=== PATIENT | male | born 1980 | race Caucasian/White ===

== ENCOUNTER 2016-08-10 11:43 | Emergency (ER) | payer MEDICAID ==
[~2016-08-10] VITALS: Ht 160 cm; Wt 76.6 kg
[~2016-08-10 11:43] MED LIST: AUG875 PO; LORA10TA3 PO
[2016-08-10 12:05] VITALS: Ht 160 cm; Wt 76.6 kg
[2016-08-10] MEDS ORDERED: NAPR-688 PO (14:16)
--- NOTE | 2016-08-10 14:27 | ERD ---
ER Documentation Chief Complaint Date/Time DATE: 08/10/16 TIME: 14:24 Chief Complaint RT FOOT PAIN UNKNOWN ORIGIN X6 MONTHS HPI This is a 35-year-old male presenting to the emergency room complaining of right dorsal foot pain for the past 6 months. Patient brings his son for a different complaint and decided to check in for his complaint as well. Patient states that he has pain that comes and goes with certain motions of his foot on the dorsal aspect of his foot and he rates it moderate in severity. Patient states that he is able to ambulate and he has no restricted range of motion. Patient states that about 6 months ago he might of had a previous injury. Patient denies any medical problems or medications. ROS All systems reviewed and are negative except as per history of present illness. Medications Home Meds Active Scripts Naproxen* (Naproxen*) 500 Mg Tablet, 500 MG PO BID Y for PAIN, #30 TAB Prov:VERONICA STRONG PA-C 08/10/16 Loratadine* (Loratadine*) 10 Mg Tablet, 10 MG PO DAILY, #14 TAB Prov:RAD OSORIO PA-C 03/06/15 Amoxicillin-Clavulanate K* (Augmentin*) 875 Mg Tab, 875 MG PO BID for 7 Days, TAB Prov:RAD OSORIO PA-C 03/06/15 PMhx/Soc Medical and Surgical Hx: pt denies Medical Hx, pt denies Surgical Hx Hx Alcohol Use: No Hx Substance Use: No Hx Tobacco Use: No Smoking Status: Never smoker Physical Exam Vitals Vital Signs Date Time Temp Pulse Resp B/P Pulse Ox O2 Delivery O2 Flow Rate FiO2 08/10/16 12:05 98.1 53 16 110/72 99 Physical Exam General: WD/WN, in no apparent distress, non-toxic appearing HENT: NC/AT Eyes: Conjunctiva normal Neck: Supple Pulm: Clear to auscultation, normal labored breathing; no wheezing/rales/ rhonchi heard CV: Good capillary refill GI: Non-distended, no guarding Back: No masses Ext: Right dorsal foot had no swelling, nontender to palpation, patient had some tenderness with certain movements, full range of motion, no nerve deficit Neuro: Moves on all fours Skin: intact Psych: Normal mood Procedures/MDM This is a 35-year-old male presenting to the emergency room for right dorsal foot pain that comes and goes with certain movements for the past 6 months. Patient is able to ambulate, he has no nerve deficits. He has full range of motion. Patient decided to check in since he is bringing his son for a different complaint. At this time I do not believe that patient needs any x- rays since this is a more chronic issue, I doubt acute fracture or dislocation, patient had no neuro deficits and is able to ambulate. Patient is suitable to follow-up with a primary care physician to get with a referral for possible MRI. My differentials include but not limited to extend just her tendinopathy, sprain, and other foot conditions. Patient was given an Abrahan bandage he is neurovascular intact. Prescription of naproxen was provided. Discussed return to the ER for any worsening signs no. Patient understands and agrees with this plan Departure Diagnosis: Primary Impression: Foot pain Condition: Stable Patient Instructions: Treating Tendonitis of the Foot Referrals: [facility] Usted se cedeno hecho un examen mdico de control que le indica que no est en nikia condicin que requiera tratamiento urgente en el Departamento de Emergencia. Un estudio ms profundo y el tratamiento de carnes condicin pueden esperar sin ningn riesgo hasta que usted sea atendida/o en el consultorio de carnes mdico o nikia cl janelle. Es responsabilidad suya arreglar nikia lorenzo para el seguimiento del poonam. MANEJO DE CONDICIONES NO URGENTES EN EL FUTURO 1) Si usted tiene un mdico de atencin primaria: Usted debera llamar a carnes mdico de atencin primaria antes de venir al departamento de emergencia. Despus de las horas de consultorio, carnes doctor o carnes asociado/a est disponible por telfono. El mdico o enfermero de gray en el servicio telefnico puede asesorarle por janice medio para atender el problema, o poonam contrario se puede programar nikia lorenzo. 2) Si usted no tiene un mdico de atencin primaria: Llame al mdico o clnica de referencia que aparece abajo dwayne las horas de consultorio para hacer nikia lorenzo para que le vean. CLINICAS: [facility] [phone] [facility] [phone] [facility] [phone] [place] [phone] [place] [address] [phone] [facility]. [phone] [address] Additional Instructions: Visite a carnes mdico maana para un EXAMEN.Regrese a estas instalaciones si no se mejora susan esperbamos o susan le dijimos. [place] toda la medicina genaro y susan se le indic. Regrese a estas instalaciones si no se mejora susan esperbamos o susan le dijimos. VERONICA STRONG PA-C Aug 10, 2016 14:27
== END 2016-08-10 14:53 | disposition home or self-care (01) ==
LOC: FTE 11:43
DX: M79.671 Pain in right foot (principal)
CPT/HCPCS: 99283

== ENCOUNTER 2016-08-30 18:14 | Emergency (ER) | payer MEDICAID ==
[~2016-08-30] VITALS: Ht 157.5 cm; Wt 78.0 kg
[~2016-08-30 18:14] MED LIST changes: +NAPR-688 PO
[2016-08-30 18:19] VITALS: Ht 157.5 cm; Wt 78.0 kg
[2016-08-30] MEDS ORDERED: HYDR-3011 PO (18:39)
[2016-08-30] MEDS ORDERED: DOXY100T20 PO (18:39)
--- NOTE | 2016-08-30 18:48 | ERD ---
ER Documentation Chief Complaint Date/Time DATE: 08/30/16 TIME: 18:45 Chief Complaint FOREHEAD RASH HPI 35-year-old male presents in emergency department for a rash that broke out in the forehead area started 2 weeks ago, patient noted it to be more and seems to be now has shows. Patient does not have any fever or chills. Patient denies any rash in other parts of the body. Patient is complaining of itching at times. Patient states when he works that he has been sweating a lot lately. Patient did not take any medications of symptoms. ROS All systems reviewed and are negative except as per history of present illness. Medications Home Meds Active Scripts Hydroxyzine Hcl* (Hydroxyzine Hcl*) 25 Mg Tablet, 25 MG PO Q8H Y for ITCHING, # 30 TAB Prov:BRIANNA AMAYA NP 08/30/16 Doxycycline Hyclate* (Doxycycline Hyclate*) 100 Mg Tablet.dr, 100 MG PO BID for 10 Days, TAB Prov:BRIANNA AMAYA NP 08/30/16 Naproxen* (Naproxen*) 500 Mg Tablet, 500 MG PO BID Y for PAIN, #30 TAB Prov:VERONICA STRONG PA-C 08/10/16 Loratadine* (Loratadine*) 10 Mg Tablet, 10 MG PO DAILY, #14 TAB Prov:RAD OSORIO PA-C 03/06/15 Amoxicillin-Clavulanate K* (Augmentin*) 875 Mg Tab, 875 MG PO BID for 7 Days, TAB Prov:RAD OSORIO PA-C 03/06/15 Allergies Allergies: Coded Allergies: No Known Allergy (Unverified , 08/30/16) PMhx/Soc Medical and Surgical Hx: pt denies Surgical Hx Hx Cardiac Disorders: Yes (dyslipidemia) Hx Alcohol Use: No Hx Substance Use: No Hx Tobacco Use: No FmHx Family History: No coronary disease, No diabetes, No other Physical Exam Vitals Vital Signs Date Time Temp Pulse Resp B/P Pulse Ox O2 Delivery O2 Flow Rate FiO2 08/30/16 18:19 98.1 58 20 100/54 99 Physical Exam GENERAL: The patient is well developed and appropriate for usual state of health, in no apparent distress. CHEST: Clear to auscultation bilaterally. There are no rales, wheezes or rhonchi. HEART: Regular rate and rhythm. No murmurs, clicks, rubs or gallops. No S3 or S4. ABDOMEN: Soft, nontender and nondistended. Good bowel sounds. No rebound or guarding. No gross peritonitis. No gross organomegaly or masses. No Parmar sign or McBurney point tenderness. BACK: No midline or flank tenderness. EXTREMITIES: Equal pulses bilaterally. There is no peripheral clubbing, cyanosis or edema. No focal swelling or erythema. Full range of motion. Grossly neurovascularly intact. NEURO: Alert and oriented. Cranial nerves 2-12 intact. Motor strength in all 4 extremities with 5/5 strength. Sensation grossly intact. Normal speech and gait. SKIN: Papules and pustules noted in the forehead area, no fluctuance noted. There is no apparent ecchymosis or petechia. The skin is warm and dry. HEMATOLOGIC AND LYMPHATIC: There is no evidence of excessive bruising or lymphedema. No gross cervical, axillary, or inguinal lymphadenopathy. Procedures/MDM Medical decision making: Patient's rash in the forehead area most likely consistent with acne vulgaris with pustules, no symptoms of abscess at this time. No symptoms of sepsis at this time. Patient was given for doxycycline, hydroxyzine, is advised to keep area dry, avoid touching the rash, follow-up with demo event specialist for further evaluation and symptoms. Patient was advised to return to emergency department for worsening symptoms. Departure Diagnosis: Primary Impression: Acne vulgaris Condition: Stable Patient Instructions: Adult Acne BRIANNA AMAYA NP Aug 30, 2016 18:48
== END 2016-08-30 18:40 | disposition home or self-care (01) ==
LOC: E/R 18:14
DX: L70.0 Acne vulgaris (principal)
CPT/HCPCS: 99284

== ENCOUNTER 2017-06-24 11:39 | Emergency (ER) | END 2017-06-24 12:08 | disposition home or self-care (01) ==

== ENCOUNTER 2017-08-29 10:39 | Emergency (ER) | END 2017-08-29 11:45 | disposition home or self-care (01) ==

== ENCOUNTER 2018-03-06 09:27 | Emergency (ER) | END 2018-03-06 10:50 | disposition home or self-care (01) ==

== ENCOUNTER 2018-08-11 17:41 | Emergency (ER) | payer MEDICAID ==
[~2018-08-11] VITALS: Ht 162.6 cm; Wt 82.0 kg
[~2018-08-11 17:41] MED LIST changes: +CETI10CA PO; +CETI10TA34 PO; +DOXY100T20 PO; +ERYT1OIN6 OP; +HYDR-843 PO; +MINE3.5O31 BOTH EYES; +MUPI22OI2 TOP; +NAPR-985 PO; +POLY10DR19 RIGHT EYE; +PRED20TA PO
[2018-08-11 18:04] VITALS: BP 139/69; PULSE 53; RESP 18; Ht 162.6 cm; Wt 82.0 kg
--- NOTE | 2018-08-11 20:14 | ERD ---
ER Documentation Chief Complaint Chief Complaint bilateral lower eye/upper cheek skin bumps X 2 days, eye "burning" pain HPI 37-year-old male, previously healthy, presents to the emergency department, complaining of bilateral eyelid erythema and focal pruritus, the patient believes that is an allergic reaction caused by a new hair product that he has been using for the last week. He denies lip swelling, no shortness of breath, no difficulty swallowing. ROS All systems reviewed and are negative except as per history of present illness. Medications Home Meds Active Scripts Triamcinolone Acetonide (Triamcinolone Acetonide) 0.5% - 15 Gm Oint..gm., 1 APPLIC TOP BID for 7 Days, #1 TUB Prov:DEEPAK DONALD MD 08/11/18 Cetirizine Hcl* (Zyrtec*) 10 Mg Capsule, 10 MG PO DAILY, #10 TAB.CHEW Prov:TYLER AGUILAR PA-C 03/06/18 Polymyxin B Sulfate-TMP* (Polymyxin B-TMP Eye Drops*) 10 Ml Drops, 1 DROP RIGHT EYE QID for 7 Days, EA Prov:TYLER AGUILAR PA-C 03/06/18 Naproxen* (Naprosyn*) 500 Mg Tablet, 500 MG PO BID PRN for PAIN AND/OR INFLAMMATION, #30 TAB Prov:CHRISTELLE KILLIAN PA-C 10/24/17 Mupirocin* (Bactroban*) 2% -22 Gram Oint...g., 1 APPLIC TOP BID for 7 Days, EA Prov:TYLER AGUILAR PA-C 10/24/17 Prednisone* (Prednisone*) 20 Mg Tab, 40 MG PO DAILY for 5 Days, TAB Prov:RAD OSORIO PA-C 08/29/17 Cetirizine Hcl* (Zyrtec*) 10 Mg Capsule, 10 MG PO DAILY, #30 TAB.CHEW Prov:RAD OSORIO PA-C 08/29/17 Erythromycin Base (Erythromycin) 1 Gm Oint...g., 1 GM OP Q6 for 7 Days Prov:VERONICA STRONG PA-C 06/24/17 Cetirizine Hcl* (Cetirizine Hcl*) 10 Mg Tab.chew, 10 MG PO DAILY, #30 TAB Prov:VERONICA STRONG PA-C 06/24/17 Artificial Tears* (Akwa Oint*) 3.5 Gm Oint, 1 APPLIC BOTH EYES HS for 7 Days, #1 TUB Prov:VERONICA STRONG PA-C 06/24/17 Hydroxyzine Hcl* (Hydroxyzine Hcl*) 25 Mg Tablet, 25 MG PO Q8H PRN for ITCHING, #30 TAB Prov:BRIANNA AMAYA NP 08/30/16 Doxycycline Hyclate* (Doxycycline Hyclate*) 100 Mg Tablet.dr, 100 MG PO BID for 10 Days, TAB Prov:BRIANNA AMAYA NP 08/30/16 Naproxen* (Naproxen*) 500 Mg Tablet, 500 MG PO BID PRN for PAIN, #30 TAB Prov:VERONICA STRONG PA-C 08/10/16 Loratadine* (Loratadine*) 10 Mg Tablet, 10 MG PO DAILY, #14 TAB Prov:RAD OSORIO PA-C 03/06/15 Amoxicillin-Clavulanate K* (Augmentin*) 875 Mg Tab, 875 MG PO BID for 7 Days, TAB Prov:RAD OSORIO PA-C 03/06/15 Allergies Allergies: Coded Allergies: No Known Allergy (Unverified , 03/06/18) PMhx/Soc Medical and Surgical Hx: pt denies Surgical Hx Hx Cardiac Disorders: No Hx Alcohol Use: No Hx Substance Use: No Hx Tobacco Use: No Smoking Status: Never smoker FmHx Family History: No diabetes, No coronary disease Physical Exam Vitals Vital Signs Date Temp Pulse Resp B/P (MAP) Pulse Ox O2 O2 Flow FiO2 Time Delivery Rate 08/11/18 98.0 53 18 139/69 98 18:04 (92) Physical Exam Const: No acute distress Head: Atraumatic Eyes: Normal Conjunctiva ENT: Normal External Ears, Nose and Mouth. Neck: Full range of motion. No meningismus. Resp: Clear to auscultation bilaterally Cardio: Regular rate and rhythm, no murmurs Abd: Soft, non tender, non distended. Normal bowel sounds Skin: Bilateral eyelid erythema and dryness. Back: No midline or flank tenderness Ext: No cyanosis, or edema Neur: Awake and alert Psych: Normal Mood and Affect Procedures/MDM Differential diagnosis include but not limited to: Acute allergic reaction, shingles, scabies, autoimmune dermatitis, medication side effect, low suspicion for angioedema, anaphylactic shock, Linares-Virgilio syndrome. Physical examination and clinical presentation consistent most likely with acute allergic dermatitis Results and clinical impression discussed with patient whom agrees with management. The patient is stable to be treated outpatient and will be discharged home with a Rx for triamcinolone. The patient was instructed to follow up with the primary care provider in the next 48h. If symptoms persist, worsen or new symptoms develop, then patient should return to the ED immediately. Instructions explained and given directly by me with acknowledgment and demonstrated understanding. Disclaimer: Inadvertent spelling and grammatical errors are likely due to EHR/dictation software use and do not reflect on the overall quality of patient care. Also, please note that the electronic time recorded on this note does not necessarily reflect the actual time of the patient encounter. Departure Diagnosis: Primary Impression: Allergic dermatitis Condition: Stable Additional Instructions: Muchas ashley por [facility] para carnes servicio. Esperamos que en carnes visita a la callum de emergencia carnes problema medico haya sido solucionado y que se sienta mucho mejor. Para estar seguros que carnes mejoria sigue en proceso, le pedimos el favor de hacer nikia lorenzo de seguimiento medico con carnes doctor primario en los proximos 2-4 morrison. Lleve con usted estos documentos y las medicinas recetadas. Si peyman sintomas empeoran, NO SE ESPERE, por favor regrese a callum de emergencia INMEDIATAMENTE. En poonam que usted no tenga un mdico de atencin primaria: Llame al mdico o clnica comunitaria de referencia que aparece abajo dwayne las horas de consultorio para hacer nikia lorenzo para que le vean. CLINICAS: [facility] [phone] [facility] [phone] [facility] [phone] [facility] [phone] [facility] [phone] [facility]. [phone] DEEPAK HAND MD Aug 11, 2018 20:14
[2018-08-11] MEDS ORDERED: TRIA15OI9 TOP (20:15)
== END 2018-08-11 20:28 | disposition home or self-care (01) ==
LOC: FTE 17:41
DX: H01.112 Allergic dermatitis of right lower eyelid (principal); H01.115 Allergic dermatitis of left lower eyelid
CPT/HCPCS: 99283

== ENCOUNTER 2018-10-17 11:41 | Emergency (ER) | payer MEDICAID ==
[~2018-10-17] VITALS: Ht 160 cm; Wt 82.1 kg
[~2018-10-17 11:41] MED LIST changes: +TRIA15OI9 TOP
[2018-10-17 12:05] VITALS: Ht 160 cm; Wt 82.1 kg
[2018-10-17] MEDS ORDERED: KETOROLAC 30 MG INJ IV STA (12:26)
--- NOTE | 2018-10-17 12:30 | ERD ---
ER Documentation Chief Complaint Chief Complaint PT with lower back pain X 15 days, no injury reported. HPI 37-year-old male presents with complaint of mass in the lumbar region of his back the past 15 days. States that it hurts intermittently and he feels that the mass is getting bigger. Denies any numbness, tingling, incontinence. Denies any treatments. States that the pain is currently an 8 out of 10. Patient is ambulatory. Denies saddle numbness, incontinence, pain worse at night or when supine, weight loss, night sweats, fatigue, focal neurological defecits, recent bacterial infection, IV drug use, or immunosuppression. Denies past medical history. Denies allergies. Denies surgeries. Denies ETOH, drug, or tobacco use. ROS All systems reviewed and are negative except as per history of present illness. Medications Home Meds Active Scripts Hydrocodone/Acetaminophen ([place] 5-325 Tablet) 1 Each Tablet, 1 TAB PO Q6H PRN for PAIN, #10 TAB Prov:PAUL WINTER 10/17/18 Ibuprofen* (Motrin*) 600 Mg Tab, 600 MG PO Q6, #30 TAB Prov:PAUL WINTER 10/17/18 Triamcinolone Acetonide (Triamcinolone Acetonide) 0.5% - 15 Gm Oint..gm., 1 APPLIC TOP BID for 7 Days, #1 TUB Prov:DEEPAK DONALD MD 08/11/18 Cetirizine Hcl* (Zyrtec*) 10 Mg Capsule, 10 MG PO DAILY, #10 TAB.CHEW Prov:TYLER AGUILAR PA-C 03/06/18 Polymyxin B Sulfate-TMP* (Polymyxin B-TMP Eye Drops*) 10 Ml Drops, 1 DROP RIGHT EYE QID for 7 Days, EA Prov:TYLER AGUILAR PA-C 03/06/18 Naproxen* (Naprosyn*) 500 Mg Tablet, 500 MG PO BID PRN for PAIN AND/OR INFLAMMATION, #30 TAB Prov:CHRISTELLE KILLIAN PA-C 10/24/17 Mupirocin* (Bactroban*) 2% -22 Gram Oint...g., 1 APPLIC TOP BID for 7 Days, EA Prov:TYLER AGUILAR PA-C 10/24/17 Prednisone* (Prednisone*) 20 Mg Tab, 40 MG PO DAILY for 5 Days, TAB Prov:RAD OSORIO PA-C 08/29/17 Cetirizine Hcl* (Zyrtec*) 10 Mg Capsule, 10 MG PO DAILY, #30 TAB.CHEW Prov:RAD OSORIO PA-C 08/29/17 Erythromycin Base (Erythromycin) 1 Gm Oint...g., 1 GM OP Q6 for 7 Days Prov:VERONICA STRONG PA-C 06/24/17 Cetirizine Hcl* (Cetirizine Hcl*) 10 Mg Tab.chew, 10 MG PO DAILY, #30 TAB Prov:VERONICA STRONG PA-C 06/24/17 Artificial Tears* (Akwa Oint*) 3.5 Gm Oint, 1 APPLIC BOTH EYES HS for 7 Days, #1 TUB Prov:VERONICA STRONG PA-C 06/24/17 Hydroxyzine Hcl* (Hydroxyzine Hcl*) 25 Mg Tablet, 25 MG PO Q8H PRN for ITCHING, #30 TAB Prov:BRIANNA AMAYA NP 08/30/16 Doxycycline Hyclate* (Doxycycline Hyclate*) 100 Mg Tablet.dr, 100 MG PO BID for 10 Days, TAB Prov:BRIANNA AMAYA NP 08/30/16 Naproxen* (Naproxen*) 500 Mg Tablet, 500 MG PO BID PRN for PAIN, #30 TAB Prov:VERONICA STRONG PA-C 08/10/16 Loratadine* (Loratadine*) 10 Mg Tablet, 10 MG PO DAILY, #14 TAB Prov:RAD OSORIO PA-C 03/06/15 Amoxicillin-Clavulanate K* (Augmentin*) 875 Mg Tab, 875 MG PO BID for 7 Days, TAB Prov:RAD OSORIO PA-C 03/06/15 Allergies Allergies: Coded Allergies: No Known Allergy (Unverified , 03/06/18) PMhx/Soc Hx Cardiac Disorders: No Hx Alcohol Use: No Hx Substance Use: No Hx Tobacco Use: No FmHx Family History: No diabetes, No coronary disease, No other Physical Exam Vitals Vital Signs Date Temp Pulse Resp B/P (MAP) Pulse Ox O2 O2 Flow FiO2 Time Delivery Rate 10/17/18 98.5 55 18 123/79 100 Room Air 18:21 (94) 10/17/18 98.2 66 18 132/61 99 12:05 (84) Physical Exam Const: No acute distress Head: Atraumatic Eyes: Normal Conjunctiva ENT: Normal External Ears, Nose and Mouth. Neck: Full range of motion. No meningismus. Resp: Clear to auscultation bilaterally Cardio: Regular rate and rhythm, no murmurs Abd: Soft, non tender, non distended. Normal bowel sounds Skin: No petechiae or rashes Back: Approximately 5 cm mass palpated in the lumbar region. There is tender to palpation. There is no induration noted. Back has full range of motion. Ext: No cyanosis, or edema. No saddle numbness. 5 out of 5 strength in lower extremities. Distal sensation intact. Neur: Awake and alert Psych: Normal Mood and Affect Result Diagram: 10/17/18 1251 10/17/18 1251 Results 24 hrs Laboratory Tests Test 10/17/18 12:51 White Blood Count 8.2 10^3/ul Red Blood Count 4.97 10^6/ul Hemoglobin 14.9 g/dl Hematocrit 43.7 % Mean Corpuscular Volume 87.9 fl Mean Corpuscular Hemoglobin 30.0 pg Mean Corpuscular Hemoglobin Concent 34.1 g/dl Red Cell Distribution Width 12.0 % Platelet Count 217 10^3/UL Mean Platelet Volume 11.1 fl Immature Granulocytes % 0.400 % Neutrophils % 51.0 % Lymphocytes % 38.2 % Monocytes % 8.2 % Eosinophils % 1.7 % Basophils % 0.5 % Nucleated Red Blood Cells % 0.0 /100WBC Immature Granulocytes # 0.030 10^3/ul Neutrophils # 4.2 10^3/ul Lymphocytes # 3.1 10^3/ul Monocytes # 0.7 10^3/ul Eosinophils # 0.1 10^3/ul Basophils # 0.0 10^3/ul Nucleated Red Blood Cells # 0.0 10^3/ul Sodium Level 142 mmol/L Potassium Level 4.0 mmol/L Chloride Level 106 mmol/L Carbon Dioxide Level 26 mmol/L Anion Gap 10 Blood Urea Nitrogen 15 mg/dl Creatinine 0.65 mg/dl Est Glomerular Filtrat Rate mL/min > 60 mL/min Glucose Level 115 mg/dl Calcium Level 9.8 mg/dl Total Bilirubin 0.5 mg/dl Direct Bilirubin 0.00 mg/dl Indirect Bilirubin 0.5 mg/dl Aspartate Amino Transf (AST/SGOT) 37 IU/L Alanine Aminotransferase (ALT/SGPT) 38 IU/L Alkaline Phosphatase 69 IU/L Total Protein 8.5 g/dl Albumin 5.0 g/dl Globulin 3.50 g/dl Albumin/Globulin Ratio 1.42 Current Medications Medications Dose Sig/Chu Start Time Status Last (Trade) Ordered Route PRN Stop Time Admin Dose Reason Admin Ketorolac 30 mg ONCE STAT 10/17/18 DC 10/17/18 Tromethamine IV 12:26 10/17/18 12:54 (Toradol) 12:28 IV Flush 10 ml STK-MED 10/17/18 DC (NS 10 ml) ONCE .ROUTE 14:14 10/17/18 14:15 Sodium 100 ml @ ud STK-MED 10/17/18 DC Chloride ONCE .ROUTE 14:14 10/17/18 14:15 Iohexol 150 ml STK-MED 10/17/18 DC (Omnipaque ONCE .ROUTE 14:14 10/17/18 300mg/ ml) 14:15 Procedures/MDM DIAGNOSTIC IMAGING REPORT Patient: ISRA VERDIN : 1980 Age: 37 Sex: M MR #: [id number] DOS: 10/17/18 1222 Ordering MD: PAUL WINTER Location: [facility] Room/Bed: PROCEDURE: CT L-Spine. With contrast CLINICAL INDICATION: Mass in lumbar area TECHNIQUE: A CT of the lumbar spine was performed on a GE 64-slice CT scanner utilizing high-resolution thin section axial images from the thoracic lumbar junction through the lumbar sacral junction mild uneventful menstruation of 100 cc of Omnipaque-300 contrast.. Sagittal and coronal and multiplanar reformatted images were made. DICOM images are available for review. The CTDIvol is 20.89 mGy and the DLP is 757.74 mGycm. One or more the following dose reduction techniques were utilized: Automated exposure control, adjustment of the mA/ or kV according to patient's size, or use of iterative reconstruction technique. COMPARISON: MRI lumbar spine 05/15/2017 FINDINGS: Images lumbar spine demonstrate there is anatomic alignment. Vertebral body is uniform in height. No evidence of fracture or subluxation is seen. No abnormally enhancing intrathecal or paraspinous masses are visualized. T12-L1: The disk is normal in height. The central canal and neural foramen are adequately patent. L1-2: The disk is normal in height. The central canal and neural foramen are adequately patent. L2-3: The disk is normal in height. Central canal is patent. The neural foramen are patent. L3-4: The disk is normal in height. Central canal is patent. The neural foramen are patent. L4-5: The disk is normal in height. There is a 1-2 mm annular disc bulge with mild ligamentum redundancy. The central canal is patent. Combination results in mild bilateral neural foraminal narrowing. L5-S1: There is mild posterior disc height loss with a 2 mm annular disc bulge. There is mild ligamentum redundancy. Central canal is patent. There is mild bilateral neural foraminal narrowing. IMPRESSION: Contrast-enhanced CT lumbar spine demonstrates mild lower lumbar small disc bulges slightly larger at the L5-S1 level. There is mild bilateral neural foraminal narrowing at each levels combined with mild ligamentum redundancy. RPTAT: [facility] Physician Elza Date Time Electronically viewed and signed by Physician Elza on 10/17/2018 16:56 RL/ CC: PAUL WINTER [phone] MDM: Because of physical exam findings patient complaint, there was concern for possible mass. Therefore CT of lumbar area with contrast was ordered. Results within normal limits aside from some mild disc bulging. Patient was advised that he should follow-up with his primary care. I have low suspicion for epidural abscess, cauda equina, abdominal aortic aneurysm, pyelonephritis, aortic dissection, spinal fracture, or other emergent conditions based on patient history and exam findings. Patient told if they experience leg weakness or numbness, or incontinence they need to return to the ER immediately. Patient discharged with strict ER precautions. Patient advised to follow up with PMD. All questions answered at discharge. Departure Diagnosis: Primary Impression: Back pain Back pain location: low back pain Chronicity: acute Back pain laterality: midline Sciatica presence: without sciatica Qualified Codes: M54.5 - Low back pain Condition: Stable MOYPAUL October 17, 2018 12:30
[2018-10-17] MEDS ORDERED: SOD CHLORIDE 0.9% 100 ML ONE (14:14)
[2018-10-17] MEDS ORDERED: IOHEXOL 300MG/ML 150 ML BTL ONE (14:14)
[2018-10-17] MEDS ORDERED: HYDR-4011 PO (17:50)
[2018-10-17] MEDS ORDERED: IBUP-1542 PO (17:50)
[2018-10-17 18:21] VITALS: BP 123/79; PULSE 55; RESP 18
== END 2018-10-17 18:22 | disposition home or self-care (01) ==
LOC: FTE 11:41
DX: M54.5 Low back pain (principal)
CPT/HCPCS: 36415; 72131; 80053; 85025; 96374; J1885; Q9967; Z7502; Z7610